=== PATIENT | male | born 1990 ===

== ENCOUNTER 2016-05-16 00:12 | Inpatient (IN) | payer BC, OTHER ==
[~2016-05-16] VITALS: Ht 180.3 cm; Wt 88.5 kg
[2016-05-16 02:00] VITALS: BP 121/82
[2016-05-16 02:05] LABS: *AMPHETAMINE, URINE NEGATIVE (NEGATIVE); *BARBITURATE, URINE NEGATIVE (NEGATIVE); *CANNABINOID, URINE NEGATIVE (NEGATIVE); *COCCAINE, URINE NEGATIVE (NEGATIVE); *OPIATE, URINE POSITIVE (NEGATIVE); *PHENCYCLIDINE SCREEN,URINE NEGATIVE (NEGATIVE)
[2016-05-16] MEDS ORDERED: METHOCARBAMOL 750 MG TABLET PO PRN (03:15)
[2016-05-16] MEDS ORDERED: MAGNESIUM HYDROXIDE 30 ML LIQUID UDC PO PRN (03:15)
[2016-05-16] MEDS ORDERED: ACETAMINOPHEN 325 MG TABLET PO PRN (03:15)
[2016-05-16] MEDS ORDERED: MIRALAX 17 GM POWD.PACK PO PRN (03:15)
[2016-05-16] MEDS ORDERED: PROMETHAZINE HCL 25 MG/1 ML VIAL IM PRN (03:15)
[2016-05-16] MEDS ORDERED: diphenhydrAMINE 50 MG CAPSULE PO PRN (03:15)
[2016-05-16] MEDS ORDERED: HYDROXYZINE PAMOATE 25 MG CAPSULE PO PRN (03:15)
[2016-05-16] MEDS ORDERED: LOPERAMIDE HCL 2 MG CAPSULE PO PRN ×2 (03:15)
[2016-05-16] MEDS ORDERED: DICYCLOMINE HCL 20 MG TABLET PO PRN (03:15)
[2016-05-16] MEDS ORDERED: CLONIDINE HCL 0.1 MG TABLET PO PRN (03:15)
[2016-05-16] MEDS ORDERED: IBUPROFEN 400 MG TABLET PO PRN (03:15)
[2016-05-16] MEDS ORDERED: ONDANSETRON ODT 4 MG TAB.RAPDIS SL PRN (03:15)
[2016-05-16] MEDS ORDERED: BUPRENORPHINE HCL 2 MG TAB.SUBL SL PRN (03:15)
[2016-05-16] MEDS ORDERED: MAG HYDROX/AL HYDROX/SIMETH 30 ML LIQUID UDC PO PRN (03:15)
--- NOTE | 2016-05-16 03:58 | NUR ---
ADMISSION Patient is a 25-year old, male, admitted and escorted by [facility] at 0120 to unit. Patient lives at [facility] sober living in [place] prior to admission. Skin check done, no open skin noted. No edema noted. Pt is ambulatory with steady gait. Pt stands 5'11" and weighs 195 pounds per standing scale. Vital signs are as follows: BP-121/82, T-98.3, P-79, RR-18 and SPO2 on RA=98%. Patient is AAOx4 and with no anxiety noted at this time. Lung sounds clear bilaterally upon auscultation. No cough noted and bowel sounds are present on all quadrants. PERRLA and pupils are 1 mm upon visual check. Pt reports NKA, on Regular Diet and is Full Code. Pt denies any seizure history. Per pt, withdrawal symptoms are generalized muscle weakness, runny nose, goosebumps, anxiety, restless legs and teary eyes. Substance history as follows: 1) Heroin: Per pt, started at age 19 and for the past 6 months using 1 gm via IV daily and usually 4-5 times a week. Last use was 05/16/2016 at 1900, 0.1 gm IV. Patient verbalized the he does not drink alcohol. Patient informed PMHx of Left Ankle surgery ankle. No PCP nor Psych MD per pt. Home medication mentioned was reconciled. Treatment history as follows: 1) [facility] in [facility]- 05/08/2016 to 05/15/2016 2) [place], [place]-04/14/2016 to 04/26/2016 3) [facility]-02/28/2016 to 03/04/2016 4) [facility], [place]-December 2015 Patient reports smoking cigarettes, specifically Camel, about 1 pack daily. Oriented patient to room and instructed with the use of the call light, placed within reach. Fall, universal, seizure and safety precautions implemented. Kept patient warm, dry and comfortable. No c/o significant pain at this time All needs met. Information relayed to Dr. Houston. Patient refused Pneumonia vaccine despite explanation of risks and benefits. COWS=3. Will continue to monitor.
[2016-05-16 04:00] VITALS: BP 126/79
[2016-05-16] MEDS ORDERED: TETR15DR99 OP (07:17)
--- NOTE | 2016-05-16 07:28 | NUR ---
End of Shift Patient is a 25-year old, male, admitted for Heroin dependence. Pt reports NKA, on Regular Diet and is Full Code. With PMHx of right ankle fracture surgery. Pt denies any seizure history. Per pt, for the past 6 months, he has been using Heroin 1 gm via IV usually 4-5 times a week. Pt is ambulatory with steady gait, with intact skin. Pt is AAOx3, no SOB nor significant anxiety at this time. Pt is ambulatory with steady gait, no c/o of untoward signs and symptoms. No hallucinations, SI nor HI reported. Fall, universal, seizure and safety prec in place. Call light within reach. Kept pt warm, dry and comfortable. Last COWS=4, slept for 4 hours. Endorsed to AM shift nurse for continuity of care.
[2016-05-16] MEDS ORDERED: ONDANSETRON 4 MG/2 ML VIAL IM PRN (07:30)
--- NOTE | 2016-05-16 07:40 | NUR ---
START OF SHIFT Pt is a 25 yr old male, admitted on 05/16/16 for Opiate Dependence and is on PRN's for s/s of w/d. Pt is full code, regular diet and NKA. Pt reports of PMH of left ankle fx. No PRN's were given during the night. Pt slept for 6 hrs. Pt remains in bed resting with respirations even and unlabored. No acute distress noted. Skin is intact, warm and dry to touch. No tremors seen or felt. Pt denies any pain or discomfort at this time. VS are WNL. Pt is on fall precautions. Safety precautions observed. Call light is within reach. Will continue to monitor.
[2016-05-16 08:00] VITALS: BP 124/64
[2016-05-16] MEDS ORDERED: TUBERCULIN,PURIF.PROT.DERIV. 5 TU/0.1 ML TEST ID ONE ×2 (09:00→13:00)
[2016-05-16] MEDS: MULTIVITAMINS,THERAPEUTIC TABLET PO SCH (09:00)
--- NOTE | 2016-05-16 09:25 | NUR ---
MEDICATION REFUSED Pt refused to take Multivitamin and TB at this time. Pt requested TB at a later time. Spoke with MD with new order for TB to be done at 1300. Addendum: 05/16/16 at 0928 by ANGELICA JOHNSON LVN new order noted and carried out
[2016-05-16 09:27] LABS: ALANINE AMINOTRANSFERASE 42 U/L (16-63); ALBUMIN 3.9 g/dL (3.4-5.0); ALKALINE PHOSPHATASE 66 U/L (50-136); AMYLASE 37 U/L (25-115); ASPARTATE AMINOTRANSFERASE 24 U/L (15-37); BILIRUBIN,TOTAL 0.4 mg/dL (0.2-1.0); CALCIUM 8.4 mg/dL (8.5-10.1); CARBON DIOXIDE 29 mmol/L (21-32); CHLORIDE 102 mmol/L (98-107); CREATININE 0.9 mg/dL (0.6-1.3); GFR 105 mL/min (>60); GLUCOSE 97 mg/dL (74-106); LIPASE 89 U/L (73-393); POTASSIUM 3.9 mmol/L (3.5-5.1); SODIUM SERUM 140 mmol/L (136-145); TOTAL PROTEIN, SERUM 7.1 g/dL (6.4-8.2); UREA NITROGEN, BLOOD 14 mg/dL (7-18)
[2016-05-16 09:33] LABS: THYROID STIMULATING HORMONE 0.835 mIU/mL (0.358-3.740)
[2016-05-16 09:35] LABS: ETHANOL < 3 MG/DL (0-0)
[2016-05-16 09:37] LABS: BASOPHILS # (AUTO) 0.1 K/uL (0.0-0.2); BASOPHILS % (AUTO) 1.4 % (0.0-2.0); EOSINOPHILS # (AUTO) 0.3 K/uL (0.0-0.7); EOSINOPHILS % (AUTO) 4.6 % (0.0-7.0); HEMATOCRIT 45.4 % (40.0-50.0); HEMOGLOBIN 15.8 g/dL (14.0-18.0); LYMPHOCYTES # (AUTO) 2.9 K/uL (0.8-4.8); LYMPHOCYTES % (AUTO) 44.1 % (20.5-51.5); MEAN CORPUSCULAR HEMOGLOBIN 32.5 uug (27.0-31.0); MEAN CORPUSCULAR HGB CONC 35 g/dL (32.0-37.0); MEAN CORPUSCULAR VOLUME 93.4 fL (82.0-92.0); MONOCYTES # (AUTO) 0.7 K/uL (0.1-1.30); MONOCYTES % (AUTO) 9.9 % (0.0-11.0); NEUTROPHILS # (AUTO) 2.7 K/uL (1.8-8.9); PLATELET COUNT (AUTO) 218 K/uL (150-450); RED BLOOD CELL COUNT(AUTO) 4.86 MIL/uL (4.70-6.10); RED CELL DISTRIBUTION WIDTH 13.9 % (11.5-14.5); WHITE BLOOD COUNT (AUTO) 6.7 K/uL (4.0-11.2)
[2016-05-16] MEDS ORDERED: PATIENT MAY USE OWN MED- MD OK EACHEYE PRN (09:45)
[2016-05-16 09:57] LABS: HIV-1 p24 ANTIGEN NON REACTIVE (NONREACTIVE); HIV-1/2 ANTIBODY NON REACTIVE (NONREACTIVE)
[2016-05-16 12:00] VITALS: BP 133/65
--- NOTE | 2016-05-16 12:00 | NUR ---
NSG NOTES Received new order from MD for Chest x-ray for medical clearance for TB. New order was noted and carried out.
[2016-05-16] MEDS: GABAPENTIN 300 MG CAPSULE PO SCH ×2 (14:51→21:35)
[2016-05-16 16:00] VITALS: BP 128/66
--- NOTE | 2016-05-16 19:00 | NUR ---
END OF SHIFT Pt is a 25 yr old male, admitted on 05/16/16 for Opiate Dependence and is on PRN's for s/s of w/d. Pt is to start on 4 day Subutex taper on 05/17/16 depending on COWS score. Pt is full code, regular diet and NKA. Pt reports of PMH of left ankle fx. No PRN's were given during the day. Pt received CXR for medical clearance for TB. Pt refused to take Multivitamin in the morning. Pt did not attend any group session or activities. No acute distress noted. Skin is intact, warm and dry to touch. No tremors seen or felt. Last COWS score was 3. Pt is on fall precautions. Safety precautions observed. Call light is within reach.
--- NOTE | 2016-05-16 19:56 | NUR ---
START OF SHIFT NOTE Pt is a 25 y/o male admitted for Heroin dependence. Pt has NKA but reported a PMH of a left ankle fracture sx. Per day shift nurse pt is not on a taper at this time, but has PRN medications available for any discomfort/distress. Pt didn't receive any PRNS during the day shift. Last COW: 3(1600). At this time pt is calm, cooperative, and compliant with plan of care. Pt denies any pain/discomfort. Pt is encouraged to notify staff of any changes in condition or of any concerns. Pt verbalized and understanding. All safety measures in place; side rails up x 2, bed locked and in low position and call light is within reach. Will continue to monitor.
[2016-05-16 20:00] VITALS: BP 92/59
[2016-05-17] VITALS: BP 128/67
--- NOTE | 2016-05-17 04:00 | NUR ---
COW AND VITALS REFUSED Pt refused to be assessed and have vitals taken at this time. Pt was encouraged x 3 with risks and benefits explained but the pt still refused. All safety measures in place. Will continue to monitor. Addendum: 05/17/16 at 0506 by ELIZABETH ELI LVN Amended: Links added.
--- NOTE | 2016-05-17 07:03 | NUR ---
Start of Shift Endorsement received from nightshift nurse. Pt is a 25 y/o male admitted for heroin dependence. Pt has been placed on a 4 day Subutex taper scheduled to began the taper on 05/17/16. Pt did not receive any PRN medications during nightshift. Nurse reports that the pt slept 4 hours. Pt withdrawing mildly AEB COWS 1 at midnight. . PT is alert and oriented x4. Pt is in STABLE condition at this time. Remains compliant with medication and diet regimen. All needs have been met, All safety measures in place per hospital policy. Bed in lowest position, side rails up x2, call-light within reach. Will continue to monitor
--- NOTE | 2016-05-17 07:29 | NUR ---
END OF SHIFT NOTE Pt is a 25 y/o male admitted for Heroin dependence. Pt has NKA but reported a PMH of a left ankle fracture sx. Pt is not on a taper at this time, but has PRN medications available for any discomfort/distress. Pt didn't receive any PRNS during the day shift. Last COW: 0 (0000). Pt slept for a total of 4 hours. All safety measures in place; side rails up x 2, bed locked and in low position and call light is within reach. Endorsed to the oncoming nurse.
[2016-05-17 08:00] VITALS: BP 118/51
[2016-05-17] MEDS: BUPRENORPHINE HCL 2 MG TAB.SUBL SL SCH ×3 (09:22→21:03)
[2016-05-17] MEDS: GABAPENTIN 300 MG CAPSULE PO SCH ×3 (09:23→21:03)
[2016-05-17] MEDS: MULTIVITAMINS,THERAPEUTIC TABLET PO SCH (09:23)
[2016-05-17 12:00] VITALS: BP 117/71
[2016-05-17 12:08] LABS: HCV AB <0.1 s/co ratio (0.0-0.9); HEPATITIS B CORE AB, IgM Negative (Negative); HEPATITIS B SURFACE AG Negative (Negative)
--- NOTE | 2016-05-17 15:22 | NUR ---
COWS 8 c/o anxiety, muscle aching and sweating. Subutex 4mg sl taper administered as ordered.
[2016-05-17] MEDS ORDERED: TRAZODONE 50 MG TABLET PO PRN (15:45)
[2016-05-17 16:00] VITALS: BP 135/86
--- NOTE | 2016-05-17 19:30 | NUR ---
START OF SHIFT NOTE Pt is a 25 y/o male admitted for Heroin dependence. Pt has NKA but reported a PMH of a left ankle fracture sx. Per day shift nurse pt was started on a 4 day Subutex taper today and is tolerating the medication well, with no s/e or a/r reported. Pt didn't receive any PRNS during the day shift. Last COW was reported : 4 (1600). At this time pt is calm, cooperative, and compliant with plan of care. Pt denies any pain/discomfort. Pt is encouraged to notify staff of any changes in condition or of any concerns. Pt verbalized and understanding. All safety measures in place; side rails up x 2, bed locked and in low position and call light is within reach. Will continue to monitor.
--- NOTE | 2016-05-17 19:40 | NUR ---
End of Shift Endorsement given to nightshift nurse. Pt is a 25 y/o male admitted for heroin dependence. Pt has been placed on a 4 day Subutex taper scheduled to began the taper on 05/17/16. Taper has been initiated as of 0900. Pt did not receive any PRN medications. . Pt withdrawing moderately at this time AEB COWS 4 at 1800. Intake: 2750ml, Void x3, BM x0. PT is alert and oriented x4. Pt is in STABLE condition at this time. Remains compliant with medication and diet regimen. All needs have been met, All safety measures in place per hospital policy. Bed in lowest position, side rails up x2, call-light within reach. Will continue to monitor
[2016-05-17 20:00] VITALS: BP 123/87
--- NOTE | 2016-05-18 | NUR ---
COWS AND VITALS REFUSED Pt refused to be assessed and have vitals taken at this time. Pt was encouraged x 3 with risks and benefits explained but the pt declined. All safety measures in place. Will continue to monitor. Addendum: 05/18/16 at 0329 by ELIZABETH ELI LVN Amended: Links added.
--- NOTE | 2016-05-18 04:00 | NUR ---
COW AND VITALS REFUSED Pt refused to be assessed and have vitals taken at this time. Pt was encouraged x 3 with risks and benefits explained but the pt still declined. All safety measures in place. Will continue to monitor Addendum: 05/18/16 at 0623 by ELIZABETH ELI LVN Amended: Links added.
--- NOTE | 2016-05-18 07:05 | NUR ---
Start of Shift Endorsement received from nightshift nurse. Pt is a 25 y/o male admitted for heroin dependence. Pt has been placed on a 4 day Subutex taper, taper has been initiated on 05/17/16. Pt did not receive any PRN medications during nightshift. Nurse reports that the pt slept 5 hours. Pt withdrawing mildly AEB COWS 4 at midnight. PT is alert and oriented x4. Pt is in STABLE condition at this time. Remains compliant with medication and diet regimen. All needs have been met, All safety measures in place per hospital policy. Bed in lowest position, side rails up x2, call-light within reach. Will continue to monitor
--- NOTE | 2016-05-18 07:11 | NUR ---
END OF SHIFT NOTE Pt is a 25 y/o male admitted for Heroin dependence. Pt has NKA but reported a PMH of a left ankle fracture sx. Pt continues on 4 day Subutex taper (day2) and is tolerating medication well with no s/e or a/r reported. Pt didn't receive any PRNS during the day shift. Last COW: 4 (1999). Pt slept for a total of 5 hours. All safety measures in place; side rails up x 2, bed locked and in low position and call light is within reach. Endorsed to the oncoming nurse.
[2016-05-18 08:00] VITALS: BP 135/70
[2016-05-18] MEDS: GABAPENTIN 300 MG CAPSULE PO SCH ×3 (08:29→22:02)
[2016-05-18] MEDS: MULTIVITAMINS,THERAPEUTIC TABLET PO SCH (08:29)
[2016-05-18] MEDS ORDERED: BUPRENORPHINE HCL 2 MG TAB.SUBL SL SCH (09:00)
[2016-05-18 15:02] VITALS: BP 125/74
[2016-05-18] MEDS: BUPRENORPHINE HCL 2 MG TAB.SUBL SL SCH ×2 (15:11→22:02)
[2016-05-18 16:00] VITALS: BP 110/62
--- NOTE | 2016-05-18 18:41 | NUR ---
End of Shift Endorsement given to nightshift nurse. Pt is a 25 y/o male admitted for heroin dependence. Pt has been placed on a 4 day Subutex taper that begun on 05/17/16. Pt withdrawing mildly at this time AEB COWS 3 at 1600. Pt participated in groups and activities. Educated pt on deep breathing techniques. Pt did not receive any PRN medications. Intake: 2170ml, Void x3, BM x1. PT is alert and oriented x4. Pt is in STABLE condition at this time. Remains compliant with medication and diet regimen. All needs have been met, All safety measures in place per hospital policy. Bed in lowest position, side rails up x2, call-light within reach. Will continue to monitor
[2016-05-18 20:00] VITALS: BP 143/83
--- NOTE | 2016-05-18 20:00 | NUR ---
START OF SHIFT NOTE PATIENT IS A 25 YEAR OLD MALE, ADMITTED ON HEROIN DEPENDENCE. PATIENT WAS PLACED ON HIS 2ND DAY OF HIS 4 DAY SUBUTEX TAPER. PATIENT IS FULL CODE, REGULAR DIET AND NO KNOWN ALLERGY. SKIN INTACT. PATIENT DID NOT REQUIRE ANY PRN MEDICATION DURING THE DAY. LAST COWS 3. ON FALL PRECAUTION. NO SEIZURE HISTORY. PATIENT ALERT AND ORIENTED X 4. PATIENT C/O ANXIETY, SWEATING, STUFFY NOSE, MOIST EYES AND RESTLESS. ON FALL PRECAUTION. SAFETY MEASURES IN PLACE. CALL LIGHT IN REACH. WILL CONTINUE TO MONITOR.
--- NOTE | 2016-05-19 | NUR ---
COWS/VS PATIENT REFUSED VS. COWS UNABLE TO COMPLETE. RESPIRATION EVEN AND UNLABORED. RR 15. SAFETY MEASURES IN PLACE. CALL LIGHT IN REACH. WILL CONTINUE TO MONITOR
--- NOTE | 2016-05-19 04:00 | NUR ---
COWS/VS PATIENT REFUSED VS. COWS UNABLE TO COMPLETE. RESPIRATION EVEN AND UNLABORED. RR 15. SAFETY MEASURES IN PLACE. CALL LIGHT IN REACH. WILL CONTINUE TO MONITOR
--- NOTE | 2016-05-19 07:05 | NUR ---
Start of Shift Endorsement received from nightshift nurse. Pt is a 25 y/o male admitted for heroin dependence. Pt has been placed on a 4 day Subutex taper, taper has been initiated on 05/17/16. Pt did not receive any PRN medications during nightshift. Nurse reports that the pt slept 5 hours. Pt withdrawing moderately AEB COWS 6 at 2000. Pt reports readiness for discharge. PT is alert and oriented x4. Pt is in STABLE condition at this time. Remains compliant with medication and diet regimen. All needs have been met, All safety measures in place per hospital policy. Bed in lowest position, side rails up x2, call-light within reach. Will continue to monitor
--- NOTE | 2016-05-19 07:35 | NUR ---
END OF SHIFT NOTE PATIENT IS A 25 YEAR OLD MALE, ADMITTED ON HEROIN DEPENDENCE. PATIENT WAS PLACED ON HIS 2ND DAY OF HIS 4 DAY SUBUTEX TAPER, TOLERATED, NO ADVERSE EFFECT. PATIENT IS FULL CODE, REGULAR DIET AND NO KNOWN ALLERGY. SKIN INTACT. ON FALL PRECAUTION. NO SEIZURE HISTORY. PATIENT ALERT AND ORIENTED X 4. PATIENT C/O ANXIETY, SWEATING, STUFFY NOSE, MOIST EYES AND RESTLESS. PATIENT COMPLIANT WITH MEDICATIONS AND TREATMENT PLAN. ON FALL PRECAUTION. SAFETY MEASURES IN PLACE. CALL LIGHT IN REACH. WILL CONTINUE TO MONITOR. SLEPT 5 HOURS. FLUID INTAKE 651 ML. VOIDED X 2, NO BM. LAST COWS 6.
[2016-05-19 08:00] VITALS: BP 142/87
[2016-05-19] MEDS: MULTIVITAMINS,THERAPEUTIC TABLET PO SCH (08:59)
[2016-05-19] MEDS: GABAPENTIN 300 MG CAPSULE PO SCH ×3 (08:59→20:52)
[2016-05-19] MEDS ORDERED: BUPRENORPHINE HCL 2 MG TAB.SUBL SL SCH (09:00)
[2016-05-19 12:00] VITALS: BP 137/87
[2016-05-19] MEDS ORDERED: CLON0.1T14 PO (14:35)
[2016-05-19] MEDS ORDERED: METH-33 PO (14:35)
[2016-05-19] MEDS ORDERED: Gabapentin PO (14:35)
[2016-05-19] MEDS ORDERED: TRAZ-144 PO (14:35)
[2016-05-19] MEDS ORDERED: DICY20TA28 PO (14:35)
[2016-05-19] MEDS ORDERED: HYDR-3895 PO (14:35)
[2016-05-19 16:00] VITALS: BP 129/82
[2016-05-19 16:50] LABS: *AMPHETAMINE, URINE NEGATIVE (NEGATIVE); *BARBITURATE, URINE NEGATIVE (NEGATIVE); *CANNABINOID, URINE NEGATIVE (NEGATIVE); *COCCAINE, URINE NEGATIVE (NEGATIVE); *OPIATE, URINE NEGATIVE (NEGATIVE); *PHENCYCLIDINE SCREEN,URINE NEGATIVE (NEGATIVE)
--- NOTE | 2016-05-19 19:08 | NUR ---
End of Shift Endorsement given to nightshift nurse. Pt is a 25 y/o male admitted for heroin dependence. Pt has been placed on a 4 day Subutex taper that begun on 05/17/16. Pt has completed his taper and has been scheduled to be discharged on 05/20/16. Pt has tolerated the taper well AEB COWS 2 at 1600. Educated pt on importance of surrounding himself with a strong support system to improve his chances of sobriety. Educted pt on guided imagery. PT has been scheduled for discharge, discharge education provided. All documentation has been completed. Pt participated in groups and activities.. Pt did not receive any PRN medications. Intake: 2505ml, Void x4, BM x0. PT is alert and oriented x4. Pt is in STABLE condition at this time. Remains compliant with medication and diet regimen. All needs have been met, All safety measures in place per hospital policy. Bed in lowest position, side rails up x2, call-light within reach. Will continue to monitor
[2016-05-19 20:00] VITALS: BP 133/70
--- NOTE | 2016-05-19 20:00 | NUR ---
START OF SHIFT NOTE PATIENT IN HIS ROOM, WATCHING TV. ALERT AND ORIENTED X 4. RESPIRATION EVEN AND UNLABORED. NO N/V. ATTENDED GROUPS . DENIES ANY PAIN. PATIENT IS TO BE DISCHARGE TOMORROW. PATIENT WAS PLACED ON 4 DAY SUBUTEX TAPER FOR HEROIN DEPENDENCE, COMPLETED . NO ADVERSE REACTION. PATIENT IS FULL CODE, REGULAR DIET AND NO KNOWN ALLERGY. PER DAY SHIFT NURSE ,PATIENT DID NOT REQUIRE ANY PRN MEDICATION . LAST COWS 2. PATIENT COMPLIANT WITH MEDICATION AND TREATMENT PLAN. ON FALL PRECAUTION. SAFETY MEASURES IN PLACE. CALL LIGHT IN REACH. WILL CONTINUE TO MONITOR
[2016-05-20] VITALS: BP 156/82
[2016-05-20 04:00] VITALS: BP 118/67
--- NOTE | 2016-05-20 07:28 | NUR ---
END OF SHIFT NOTE PATIENT ALERT AND ORIENTED X 4. RESPIRATION EVEN AND UNLABORED. NO N/V. ATTENDED GROUPS . DENIES ANY PAIN. EATING WELL, WITH GOOD APPETITE AND DRINKING FLUIDS WELL. PATIENT IS TO BE DISCHARGE TODAY. PATIENT WAS PLACED ON 4 DAY SUBUTEX TAPER FOR HEROIN DEPENDENCE, COMPLETED . NO ADVERSE REACTION. PATIENT IS FULL CODE, REGULAR DIET AND NO KNOWN ALLERGY. PATIENT COMPLIANT WITH MEDICATION AND TREATMENT PLAN. PATIENT DID NOT REQUIRE ANY PRN MEDICATION DURING SHIFT. ON FALL PRECAUTION. SAFETY MEASURES IN PLACE. CALL LIGHT IN REACH. WILL CONTINUE TO MONITOR. SLEPT 6 HOURS. FLUID INTAKE OF 1,000 ML. VOIDED X 3. NO BM . LAST COWS 0.
--- NOTE | 2016-05-20 07:42 | NUR ---
BEGINNING OF SHIFT Patient endorsement report received from assistant casino shift manager nurse, all pertinent information discussed. patient is a 25 year old male, full code, regular diet with no known allergies. Patient admitted on 05/16/2016, with admitting Dx: opiate dependence. Patient with past medical history of left ankle fracture surgery in 2007, patient reports substance use of: heroin 1 gram 4-5x/week IV for 6 months. Patient completed 4 day Subutex taper, and is scheduled for discharge today. Patients skin is intact. As per assistant casino shift manager report patient received no PRNs during assistant casino shift manager, and last cow score of: 0. patient slept for 6 hours. Patient received awake, alert and oriented x4, patient educated regarding plan of care for the day, and will provide education regarding discharge. safety measures in place. call light with in reach, will continue to monitor closely.
[2016-05-20 08:41] VITALS: BP 122/68
[2016-05-20] MEDS: MULTIVITAMINS,THERAPEUTIC TABLET PO SCH (08:52)
[2016-05-20] MEDS: GABAPENTIN 300 MG CAPSULE PO SCH (08:52)
[2016-05-20] MEDS ORDERED: BUPRENORPHINE HCL 2 MG TAB.SUBL SL SCH (09:00)
--- NOTE | 2016-05-20 09:47 | NUR ---
DISCHARGE Patient discharged at 0947, prior to discharge educated regarding all discharge instructions and education with good verbal understanding. Patient noted self motivated towards sobriety. Prescriptions, and discharge instructions were placed in patients personal duffel bag, vital signs were stable prior to discharge, patient with no s/sx of withdrawal. off the unit at 0947 in stable condition.
[2016-05-23 14:12] LABS: *CODEINE Positive (.); *HYDROMORPHONE Negative (Cutoff=300); *OPIATES Positive ng/mL (Cutoff=300)
== END 2016-05-20 09:47 | disposition other institution (70) | DRG 895 ==
LOC: SRC 01:01
PROVIDERS: ADMIT Internal Medicine; ATTEND Internal Medicine
PROC: HZ2ZZZZ Detoxification Services for Substance Abuse Treatment (ICD-10-PCS; principal; 2016-05-16)
PROC: HZ41ZZZ Group Counseling for Substance Abuse Treatment, Behavioral (ICD-10-PCS; 2016-05-17)
PROC: HZ31ZZZ Individual Counseling for Substance Abuse Treatment, Behavioral (ICD-10-PCS; 2016-05-18)
DX: F11.23 Opioid dependence with withdrawal (principal); F17.210 Nicotine dependence, cigarettes, uncomplicated; G47.00 Insomnia, unspecified
CPT/HCPCS: 36415; 70030-TC; 71010; 80307; 80361; 83690; 83735; 84443; 85025; 86580; 86592; 86705; 86803; 87340; 87806; A4663; G6040-TC